=== PATIENT | male | born 1955 | race Asian ===

== ENCOUNTER 2017-01-18 09:46 | Day surgery (SDC) | payer BC ==
--- NOTE | ~2017-01-18 | EGD ---
EGD REPORT [facility] [address] [address] NAME: ARIN VASQUEZ : 57 [place]US [place] [facility] [place] [id number] AGE: 61 ADM/REG DATE : 01/18/17 MR#: [id number] REPORT SERV DATE: 01/18/17 DICTATED BY: CORY CHAMPION DATE: 01/18/17 REPORT STATUS : Draft [facility]: [facility] DATE: 01/18/17 Endoscopy Center Patient Name: Arin Vasquez Date of : 1955 Attending MD: CORY CHAMPION MD Procedure Date No Time: 01/18/2017 Procedure: Colonoscopy Indications: Screening for colorectal malignant neoplasm Referring MD: MIESHA ROBERTSON Medicines: Propofol per Anesthesia Complications: No immediate complications. Procedure: Pre-Anesthesia Assessment: - ASA Grade Assessment: I - A normal, healthy patient. After I obtained informed consent, the scope was passed under direct vision. Throughout the procedure, the patient's blood pressure, pulse, and oxygen saturations were monitored continuously. The PCF [id number] was introduced through the anus and advanced to the cecum, identified by appendiceal orifice and ileocecal valve. The colonoscopy was performed without difficulty. The patient tolerated the procedure well. The quality of the bowel preparation was good. Findings: The perianal and digital rectal examinations were normal. A sessile polyp was found in the transverse colon. The polyp was 4 mm in size. The polyp was removed with a cold biopsy forceps. Resection and retrieval were complete. A few small-mouthed diverticula were found at the hepatic flexure. Internal hemorrhoids were found during retroflexion and were Grade I (internal hemorrhoids that do not prolapse). The rest of the colon was normal. Impression: - One 4 mm polyp in the transverse colon. Resected and retrieved. - Diverticulosis at the hepatic flexure. - Internal hemorrhoids. Recommendation: - Discharge patient to home (ambulatory). - Repeat colonoscopy in 5 years for surveillance. Procedure Code(s): --- Professional --- 20821, Colonoscopy, flexible, proximal to splenic flexure; with biopsy, single or multiple EGD REPORT [facility] [address] [place] [address] [place]. [address] NAME: ARIN VASQUEZ : [birth year] STATUS : REG [facility]#: [id number] AGE: 61 ADM/REG DATE : 01/18/17 MR#: [id number] REPORT SERV DATE: 01/18/17 DICTATED BY: CORY CHAMPION. DATE: 01/18/17 REPORT STATUS : Draft TRANSCRIBED BY: [employer] DATE: 01/18/17 Diagnosis Code(s): --- Professional --- D12.3, Benign neoplasm of transverse colon K64.0, First degree hemorrhoids K57.30, Diverticulosis of large intestine without perforation or abscess without bleeding Z12.11, Encounter for screening for malignant neoplasm of colon CPT copyright 2013 [employer]. All rights reserved. The codes documented in this report are preliminary and upon insole filler review may be revised to meet current compliance requirements. Cory Champion MD CORY CHAMPION MD 01/18/2017 10:25 AM This report has been signed electronically. Number of Addenda: 0 Note Initiated On: 01/18/2017 10:10 AM Scope Withdrawal Time 0 hours 6 minutes 35 seconds [address] [facility] [place] [address]
[~2017-01-18 09:46] MED LIST: ZOCOR10 PO
== END 2017-01-18 23:59 | disposition home health service (06) ==
LOC: DMU 09:46
PROVIDERS: Internal Medicine Gastroenterology
PROC: 0DBL8ZX Excision of Transverse Colon, Via Natural or Artificial Opening Endoscopic, Diagnostic (ICD-10-PCS; principal; 2017-01-18 11:00)
DX: Z12.11 Encounter for screening for malignant neoplasm of colon (principal); K64.0 First degree hemorrhoids; K57.30 Diverticulosis of large intestine without perforation or abscess without bleeding; E78.00 Pure hypercholesterolemia, unspecified
CPT/HCPCS: 88305